=== PATIENT | male | born 1945 | race Caucasian/White ===

== ENCOUNTER 2017-02-27 15:44 | Emergency (ER) | payer OTHER, MEDICAID ==
[~2017-02-27] VITALS: Ht 182.9 cm; Wt 90.0 kg
[~2017-02-27 15:44] MED LIST: ASPI-664 PO; BENA10TA48 PO; BENZ1TAB7 PO; BUPR100T14 PO; DAL15 PO; DOCU-103 PO; DONE10TA7 PO; IBUP-1542 PO; LIDO30JE5 TOP; MULT-552 PO; OMEP20CA9 PO
[2017-02-27 15:48] VITALS: Ht 182.9 cm; Wt 90.0 kg
[2017-02-27] MEDS ORDERED: SOD CHLORIDE 0.9% 1,000 ML IV STA (16:07)
[2017-02-27] MEDS ORDERED: ATOR80TA75 PO (16:22)
[2017-02-27] MEDS ORDERED: BECL8.7A5 INH (16:23)
[2017-02-27] MEDS ORDERED: CARV3.1260 PO (16:30)
[2017-02-27] MEDS ORDERED: METF-382 PO (16:31)
[2017-02-27] MEDS ORDERED: RISP3TAB3 PO (16:32)
[2017-02-27] MEDS ORDERED: PANT40TA3 PO (16:32)
[2017-02-27] MEDS ORDERED: UBID300C PO (16:33)
--- NOTE | 2017-02-27 16:39 | RADRPT ---
PROCEDURE: XR Chest. CLINICAL INDICATION: 72-year-old male with abdominal pain. TECHNIQUE: Single frontal view of the chest was obtained COMPARISON: Chest x-ray 08/22/2015. FINDINGS: The soft tissues are normal. There are degenerative osteophytes in the thoracic spine. A mediastin otomy was performed. The heart is enlarged. The cardiomediastinal silhouette and hilar structures are normal. The pulmonary vasculature is normal. There are vascular calcifications in the aortic arc h. There is increased density in the left lower lobe which may be the result of a poorly visualized infiltrate. A lateral view would be helpful in confirmation. A left pleural effusion is suspected. IMPRESSION: 1. Left lower lobe infiltrate associated with a left pleural effusion suspicious for pneumonia. 2. Status post median sternotomy. 3. Atherosclerotic vascular disease. 4. Status post median sternotomy. RPTAT:AAJJ Physician Rancho Date Time Electronically viewed and signed by Physician Rancho on 02/27/2017 16:38 NANCY/
[2017-02-27 16:57] LABS: ADD SCAN DIFF NO
[2017-02-27 16:59] LABS: BASOPHILS % 0.2 % (0.0-2.0); EOSINOPHILS # 0.3 10^3/ul (0.0-0.5); EOSINOPHILS % 4.8 % (0.0-7.0); HEMATOCRIT 30.9 % (42.0-52.0); HEMOGLOBIN 10.4 g/dl (14.0-18.0); LYMPHOCYTES # 2.3 10^3/ul (0.8-2.9); LYMPHOCYTES % 39.9 % (15.0-51.0); MEAN CORPUSCULAR HEMOGLOBIN 30.4 pg (29.0-33.0); MEAN CORPUSCULAR HGB CONC 33.7 g/dl (32.0-37.0); MEAN CORPUSCULAR VOLUME 90.4 fl (82.0-101.0); MEAN PLATELET VOLUME 10.3 fl (7.4-10.4); MONOCYTE # 0.7 10^3/ul (0.3-0.9); MONOCYTES % 11.2 % (0.0-11.0); NEUTROPHIL # 2.5 10^3/ul (1.6-7.5); NEUTROPHILS % 43.6 % (39.0-77.0); PLATELET COUNT 134 10^3/UL (140-415); RED BLOOD COUNT 3.42 10^6/ul (4.70-6.10); RED CELL DISTRIBUTION WIDTH 13.5 % (11.5-14.5); WHITE BLOOD COUNT 5.8 10^3/ul (4.8-10.8)
--- NOTE | 2017-02-27 17:07 | ERD ---
ER Documentation Chief Complaint Date/Time DATE: 02/27/17 TIME: 17:04 Chief Complaint back pain and fever x 1 day HPI 72-year-old male who presents the emergency room for multiple issues. residential facilities reports that the patient has had fever and back pain. However the patient denies having fever or back pain. He states that he feels occasionally lightheaded when he stands up. He feels that he is dehydrated. He denies any dysuria urgency or frequency, no back pain, no chest pain or shortness of breath, no headache, no slurred speech. Patient denies any melena or hematemesis. He otherwise has no complaints. ROS All systems reviewed and are negative except as per history of present illness. Medications Home Meds Reported Medications Ubidecarenone* (Co Q-10*) 300 Mg Capsule, 300 MG PO BID, CAP 02/27/17 Risperidone* (Risperidone*) 3 Mg Tablet, 3 MG PO QHS, TAB 02/27/17 Pantoprazole* (Protonix*) 40 Mg Tablet.dr, 40 MG PO DAILY, TAB 02/27/17 Metformin Hcl* (Metformin Hcl*) 500 Mg Tablet, 500 MG PO WITH BREAKFAST DINNE, # 30 TAB 02/27/17 Carvedilol* (Carvedilol*) 3.125 Mg Tablet, 3.125 MG PO BID, #60 TAB 02/27/17 Beclomethasone Dip* (Qvar 80*) 7.3 Gm Inha, 2 PUFF INH BID, #1 INHALER 02/27/17 Atorvastatin* (Atorvastatin*) 80 Mg Tablet, 80 MG PO QHS, #30 TAB 02/27/17 Multivitamins* (Once Daily*) 1 Tab Tablet, 1 TAB PO DAILY, TAB 03/17/15 Benztropine Mesylate* (Benztropine Mesylate*) 1 Mg Tablet, 1 MG PO QHS, TAB 03/17/15 Aspirin (Low Dose Aspirin) 81 Mg Tablet.dr, 81 MG PO DAILY 03/17/15 Benazepril Hcl* (Benazepril Hcl*) 10 Mg Tablet, 10 MG PO DAILY, TAB 03/17/15 Discontinued Reported Medications Flurazepam HCl* (Dalmane*) 15 Mg Capsule, 15 MG PO HS Y for INSOMNIA, CAP 03/17/15 Lidocaine 2% Jelly* (Xylocaine 2% Jelly*) 1 Applic Jel, 1 APPLIC TOP at noon, TUB 03/17/15 Ibuprofen* (Motrin*) 600 Mg Tab, 600 MG PO BID Y for PAIN, TAB 03/17/15 Docusate Sodium (Docusil) 100 Mg Capsule, 100 MG PO BID 03/17/15 Omeprazole* (Prilosec*) 20 Mg Capsule.dr, 20 MG PO DAILY, CAP 03/17/15 Bupropion Hcl* (Bupropion Hcl*) 100 Mg Tablet, 100 MG PO DAILY, TAB 03/17/15 Donepezil* (Aricept*) 10 Mg Tablet, 10 MG PO DAILY, TAB 03/17/15 Allergies Allergies: Coded Allergies: penicillin (Verified Allergy, Unknown, rash, 02/27/17) PMhx/Soc History of Surgery: Yes (X3 BYPASS SX IN 2009) Anesthesia Reaction: No Hx Neurological Disorder: No Hx Respiratory Disorders: No Hx Cardiac Disorders: Yes (TRIPLE BYPASS IN 2009; cholesterol; htn; cad; ) Hx Psychiatric Problems: Yes (DEPRESSION, SCHIZOPHRENIA, DEMENTIA) Hx Miscellaneous Medical Probl: Yes (dm) Hx Alcohol Use: No Hx Substance Use: No Hx Tobacco Use: No Smoking Status: Unknown if ever smoked FmHx Family History: No diabetes Physical Exam Vitals Vital Signs Date Time Temp Pulse Resp B/P Pulse Ox O2 Delivery O2 Flow Rate FiO2 02/27/17 15:48 98.5 49 18 142/66 98 Physical Exam General: Well developed, well nourished, no acute distress Head: Normocephalic, atraumatic. Eyes: Pupils equally reactive, EOM intact ENT: Moist mucous membranes Neck: Supple, no lymphadenopathy Respiratory: Lungs clear bilaterally, no distress Cardiovascular: RRR, no murmurs, rubs, or gallops Abdominal: Soft, non-tender, non-distended, no peritoneal signs : Deferred MSK: No edema, no unilateral swelling, 5/5 strength Neurologic: Alert and oriented, moving all extremities, normal speech, no focal weakness, no cerebellar signs Skin: No rash Psych: Normal mood Result Diagram: 02/27/17 1610 02/27/17 1610 Results 24 hrs Laboratory Tests Test 02/27/17 16:10 02/27/17 17:05 White Blood Count 5.810^3/ul Red Blood Count 3.4210^6/ul Hemoglobin 10.4g/dl Hematocrit 30.9% Mean Corpuscular Volume 90.4fl Mean Corpuscular Hemoglobin 30.4pg Mean Corpuscular Hemoglobin Concent 33.7g/dl Red Cell Distribution Width 13.5% Platelet Count 19376^3/UL Mean Platelet Volume 10.3fl Neutrophils % 43.6% Lymphocytes % 39.9% Monocytes % 11.2% Eosinophils % 4.8% Basophils % 0.2% Nucleated Red Blood Cells % 0.0/100WBC Neutrophils # 2.510^3/ul Lymphocytes # 2.310^3/ul Monocytes # 0.710^3/ul Eosinophils # 0.310^3/ul Basophils # 0.010^3/ul Nucleated Red Blood Cells # 0.010^3/ul Prothrombin Time 13.0Sec Prothrombin Time Ratio 1.0 INR International Normalized Ratio 0.98 Activated Partial Thromboplast Time 32.1Sec Sodium Level 139mmol/L Potassium Level 3.3mmol/L Chloride Level 102mmol/L Carbon Dioxide Level 26mmol/L Anion Gap 14 Blood Urea Nitrogen 19mg/dl Creatinine 0.98mg/dl Glucose Level 109mg/dl Calcium Level 9.0mg/dl Total Bilirubin 0.2mg/dl Direct Bilirubin 0.00mg/dl Indirect Bilirubin 0.2mg/dl Aspartate Amino Transf (AST/SGOT) 35IU/L Alanine Aminotransferase (ALT/SGPT) 41IU/L Alkaline Phosphatase 54IU/L Troponin I < 0.012ng/ml Total Protein 6.1g/dl Albumin 3.3g/dl Globulin 2.80g/dl Albumin/Globulin Ratio 1.17 Lipase 95U/L Urine Color LT. YELLOW Urine Clarity CLEAR Urine pH 5.5 Urine Specific [place] 1.015 Urine Ketones NEGATIVE Urine Nitrite NEGATIVE Urine Bilirubin NEGATIVE Urine Urobilinogen 0.2 E.U./dL Urine Leukocyte Esterase NEGATIVE Urine Hemoglobin NEGATIVE Urine Glucose NEGATIVE% Urine Total Protein NEGATIVE Current Medications Medications (Trade) Dose Ordered Sig/Ashlie Route PRN Reason Start Time Stop Time Status Last Admin Dose Admin Sodium Chloride (NS) 1,000 ml @ 1,000 mls/hr Q1H STAT IV 02/27/17 16:07 02/27/17 17:06 DC Procedures/MDM EKG, MONITORS, & DIAGNOSTIC IMAGING: EKG: I reviewed and interpreted a 12-lead EKG. Rhythm: Normal sinus rhythm Ectopy: None Intervals: No abnormalities ST segments: No elevations or depressions T waves: No contiguous inversions Chest x-ray: I reviewed and interpreted a 1 view of the chest Mediastinum: No enlargement Cardiac silhouette: mild cardiomegaly Airspace: mild left effusion, no gross infiltrates Bones: No evidence of fracture Radiology read cxr IMPRESSION: 1. Left lower lobe infiltrate associated with a left pleural effusion suspicious for pneumonia. 2. Status post median sternotomy. 3. Atherosclerotic vascular disease. 4. Status post median sternotomy. RPTAT:AAJJ LAB INTERPRETATION: No leukocytosis, no left shift MEDICAL DECISION MAKING: The patient presents to the emergency room for unclear reasons. The patient states it is here because he is feeling orthostatic and possibly dehydrated. Report via [facility] facility is at the patient is having fever and back pain. He is currently taking Levaquin for presumed urinary tract infection. He denies any cough. Clinically he has no evidence of CVA tenderness, he has a benign abdominal exam and no fever. I do not believe this is consistent with pyelonephritis. Given the broad differential a broad workup will be initiated to rule out dehydration or bacteremia. Otherwise however the patient is extremely well-appearing and ambulatory without difficulty here in the emergency department. ER COURSE: The patient's radiology read on the x-ray shows evidence of possible pneumonia however the patient has no cough, no fever here, no leukocytosis and no left shift. This is possible why the patient is taking Levaquin that was started on February 26 just yesterday. Patient continues to be well-appearing. His curb 65 rule is 1 placing him in low risk. Given that he continues to be well- appearing I believe outpatient management would be most appropriate. Clinically the patient does not have evidence of pneumonia but would be reasonable to cover given patient's x-ray. Urinalysis is negative. I have attempted to reach out to the patient's primary care physician for greater than 45 minutes without success. At this time I feel the risks of inpatient hospitalization outweigh the benefits. Patient will be discharged back for completion of course of Levaquin and close primary care follow-up. I kept the patient and/or family informed of laboratory and diagnostic imaging results throughout the emergency room course. DISPOSITION PLAN: We discussed follow up with the patient's primary care doctor within 24 to 48 hours as needed. We also discussed return to the emergency room for worsening symptoms or worsening condition. Outpatient referral: [None required] Discharge Medications: Complete Levaquin course CONSULTATION: [] Departure Diagnosis: Primary Impression: Orthostasis Additional Impression: Pneumonia Pneumonia type: due to unspecified organism Laterality: left Lung location : lower lobe of lung Qualified Code: J18.1 - Pneumonia of left lower lobe due to infectious organism Condition: Stable HAKAN FARAH MD Feb 27, 2017 17:07
[2017-02-27 17:17] LABS: INR 0.98
[2017-02-27 17:18] LABS: PARTIAL THROMBOPLASTIN TIME 32.1 Sec (25.0-35.0)
[2017-02-27 17:30] LABS: ALBUMIN 3.3 g/dl (3.3-4.9)
[2017-02-27 17:31] LABS: CHLORIDE 102 mmol/L (97-110); POTASSIUM 3.3 mmol/L (3.5-5.1); SODIUM 139 mmol/L (135-144)
[2017-02-27 17:33] LABS: ALANINE AMINOTRANSFERASE 41 IU/L (13-69); ALBUMIN/GLOBULIN RATIO 1.17; ALKALINE PHOSPHATASE 54 IU/L (42-121); ANION GAP 14 (8-16); ASPARTATE AMINO TRANSFERASE 35 IU/L (15-46); BILIRUBIN,INDIRECT 0.2 mg/dl (0-1.1); BILIRUBIN,TOTAL 0.2 mg/dl (0.2-1.3); BLOOD UREA NITROGEN 19 mg/dl (7-20); CARBON DIOXIDE 26 mmol/L (21-31); CREATININE 0.98 mg/dl (0.61-1.24); GLUCOSE 109 mg/dl (70-220); TOTAL PROTEIN 6.1 g/dl (6.1-8.1)
[2017-02-27 17:43] LABS: ADD UMIC NO; URINE BILIRUBIN (Dip) NEGATIVE (NEGATIVE); URINE BLOOD (Dip) NEGATIVE (NEGATIVE); URINE COLOR LT. YELLOW (YELLOW); URINE GLUCOSE (Dip) NEGATIVE (NEGATIVE); URINE KETONES (Dip) NEGATIVE (NEGATIVE); URINE LEUKOCYTE ESTERASE (Dip) NEGATIVE (NEGATIVE); URINE NITRITE (Dip) NEGATIVE (NEGATIVE); URINE TOTAL PROTEIN (Dip) NEGATIVE (NEGATIVE); URINE UROBILINOGEN (Dip) 0.2 E.U./dL (0.1-1.0)
[2017-02-27 17:45] LABS: TROPONIN-I < 0.012 ng/ml (0.00-0.12)
[2017-02-27 18:58] VITALS: BP 161/75; PULSE 52; RESP 18; TEMP 97.5
== END 2017-02-27 20:25 | disposition home or self-care (01) ==
LOC: E/R 15:44
DX: I95.1 Orthostatic hypotension (principal); J18.1 Lobar pneumonia, unspecified organism; I10 Essential (primary) hypertension; I25.10 Atherosclerotic heart disease of native coronary artery without angina pectoris; E11.9 Type 2 diabetes mellitus without complications; M54.9 Dorsalgia, unspecified; Z79.82 Long term (current) use of aspirin; Z79.84 Long term (current) use of oral hypoglycemic drugs
CPT/HCPCS: 36415; 71010; 80053; 81003; 83690; 84484; 85025; 85610; 85730; 87086; 93005; 99285; J7030

== ENCOUNTER 2017-05-24 13:26 | Emergency (ER) | payer OTHER, MEDICAID ==
[~2017-05-24] VITALS: Ht 182.9 cm; Wt 86.0 kg
[~2017-05-24 13:26] MED LIST changes: +ATOR80TA75 PO; +BECL8.7A5 INH; -BUPR100T14 PO; +CARV3.1260 PO; -DAL15 PO; -DOCU-103 PO; -DONE10TA7 PO; -IBUP-1542 PO; -LIDO30JE5 TOP; +METF500T4 PO; -OMEP20CA9 PO; +PANT40TA3 PO; +RISP3TAB3 PO; +UBID300C PO
[2017-05-24 13:34] VITALS: Ht 182.9 cm; Wt 86.0 kg
[2017-05-24] MEDS ORDERED: ONDANSETRON (ODT) 4 MG TAB ODT STA (14:39)
[2017-05-24] MEDS ORDERED: ACETAMINOPHEN 325 MG TAB PO ONE (15:00)
--- NOTE | 2017-05-24 15:23 | RADRPT ---
PROCEDURE: Chest x-ray CLINICAL INDICATION: Cough TECHNIQUE: Chest single view COMPARISON: 02/27/2017 FINDINGS: There post thoracotomy changes. Stable cardiomegaly and an sclerotic aortic calcification is seen. The pulmonary vessels are normal in caliber. The lungs are clear. The costophrenic angles are sha rp. The visualized bony thorax is unremarkable. IMPRESSION: No acute cardiopulmonary disease. Stable cardiomegaly and atherosclerotic aortic calcification Status post CABG RPTAT: HH .Jason Agee MD, Date Time Electronically viewed and signed by .Jason Agee MD, on 05/24/2017 15:23 .W/
[2017-05-24 15:48] LABS: ADD SCAN DIFF NO
[2017-05-24 15:51] LABS: BASOPHILS % 0.3 % (0.0-2.0); EOSINOPHILS # 0.3 10^3/ul (0.0-0.5); EOSINOPHILS % 3.1 % (0.0-7.0); HEMATOCRIT 36.2 % (42.0-52.0); HEMOGLOBIN 12.4 g/dl (14.0-18.0); LYMPHOCYTES # 3.1 10^3/ul (0.8-2.9); LYMPHOCYTES % 32.2 % (15.0-51.0); MEAN CORPUSCULAR HEMOGLOBIN 30.8 pg (29.0-33.0); MEAN CORPUSCULAR HGB CONC 34.3 g/dl (32.0-37.0); MEAN CORPUSCULAR VOLUME 89.8 fl (82.0-101.0); MEAN PLATELET VOLUME 9.7 fl (7.4-10.4); MONOCYTE # 1.1 10^3/ul (0.3-0.9); NEUTROPHIL # 5.2 10^3/ul (1.6-7.5); NEUTROPHILS % 53.2 % (39.0-77.0); PLATELET COUNT 179 10^3/UL (140-415); RED BLOOD COUNT 4.03 10^6/ul (4.70-6.10); RED CELL DISTRIBUTION WIDTH 13.6 % (11.5-14.5); WHITE BLOOD COUNT 9.8 10^3/ul (4.8-10.8)
[2017-05-24 16:12] LABS: INR 0.94; PROTIME 12.6 Sec (12.2-14.2)
[2017-05-24 16:13] LABS: PARTIAL THROMBOPLASTIN TIME 28.7 Sec (25.0-35.0)
[2017-05-24 16:15] LABS: ALANINE AMINOTRANSFERASE 56 IU/L (13-69); ALBUMIN 5.1 g/dl (3.3-4.9); ALBUMIN/GLOBULIN RATIO 1.88; ALKALINE PHOSPHATASE 53 IU/L (42-121); ANION GAP 15 (8-16); ASPARTATE AMINO TRANSFERASE 34 IU/L (15-46); BILIRUBIN,INDIRECT 0.4 mg/dl (0-1.1); BILIRUBIN,TOTAL 0.4 mg/dl (0.2-1.3); BLOOD UREA NITROGEN 27 mg/dl (7-20); CALCIUM 10.1 mg/dl (8.4-10.2); CARBON DIOXIDE 24 mmol/L (21-31); CHLORIDE 101 mmol/L (97-110); CREATININE 1.56 mg/dl (0.61-1.24); GLUCOSE 99 mg/dl (70-220); POTASSIUM 4.1 mmol/L (3.5-5.1); SODIUM 136 mmol/L (135-144); TOTAL PROTEIN 7.8 g/dl (6.1-8.1)
[2017-05-24 16:35] LABS: TROPONIN-I < 0.012 ng/ml (0.00-0.12)
[2017-05-24] MEDS ORDERED: AZIT250T94 PO (17:24)
[2017-05-24] MEDS ORDERED: BENZ100C70 PO (17:24)
[2017-05-24] MEDS ORDERED: ACET500C5 PO (17:24)
[2017-05-24] MEDS ORDERED: KETOROLAC 15 MG INJ IV STA (17:29)
[2017-05-24 17:46] VITALS: BP 131/66; PULSE 58; RESP 20; TEMP 98.2
[2017-05-24] MEDS ORDERED: morphine 2 MG INJ IV ONE (18:00)
--- NOTE | 2017-05-25 00:13 | ERD ---
ER Documentation Chief Complaint Date/Time DATE: 05/25/17 TIME: 00:09 Chief Complaint sore throat with n/v x 3 days HPI 72-year-old male patient with a past nuchal history of diabetes, hypertension, neuropathy, arthritis presents to the ED complaining of sore throat, nausea, one episode of nonbilious nonbloody vomiting, dry cough that started 3 days ago. Reports that he feels like his equilibrium is imbalanced. Denies any head or neck traumas. Denies any loss of consciousness. Denies any seizures, weakness, numbness or tingling, abdominal pain, chest pain, shortness of breath , wheezing, dyspnea on exertion, orthopnea, leg swelling. ROS All systems reviewed and are negative except as per history of present illness. Medications Home Meds Active Scripts Azithromycin* (Zithromax*) 250 Mg Tablet, 250 MG PO .ZPACK DIRECTED, #6 TAB TAKE 500 MG (2 TABS) THE FIRST DAY THEN 250 MG (1 TAB) DAYS 2-5 Prov:POLLY BARON PA-C 05/24/17 Acetaminophen* (Tylophen*) 500 Mg Capsule, 1 CAP PO Q6H Y for PAIN AND OR ELEVATED TEMP, #20 CAP Prov:POLLY BARON PA-C 05/24/17 Benzonatate* (Tessalon Perle*) 100 Mg Capsule, 100 MG PO Q8H Y for COUGH, #20 CAP Prov:POLLY BARON-Jose 05/24/17 Reported Medications Ubidecarenone* (Co Q-10*) 300 Mg Capsule, 300 MG PO BID, CAP 02/27/17 Risperidone* (Risperidone*) 3 Mg Tablet, 3 MG PO QHS, TAB 02/27/17 Pantoprazole* (Protonix*) 40 Mg Tablet.dr, 40 MG PO DAILY, TAB 02/27/17 Metformin Hcl* (Metformin Hcl*) 500 Mg Tablet, 500 MG PO WITH BREAKFAST DINNE, # 30 TAB 02/27/17 Carvedilol* (Carvedilol*) 3.125 Mg Tablet, 3.125 MG PO BID, #60 TAB 02/27/17 Beclomethasone Dip* (Qvar 80*) 7.3 Gm Inha, 2 PUFF INH BID, #1 INHALER 02/27/17 Atorvastatin* (Atorvastatin*) 80 Mg Tablet, 80 MG PO QHS, #30 TAB 02/27/17 Multivitamins* (Once Daily*) 1 Tab Tablet, 1 TAB PO DAILY, TAB 03/17/15 Benztropine Mesylate* (Benztropine Mesylate*) 1 Mg Tablet, 1 MG PO QHS, TAB 03/17/15 Aspirin (Low Dose Aspirin) 81 Mg Tablet.dr, 81 MG PO DAILY 03/17/15 Benazepril Hcl* (Benazepril Hcl*) 10 Mg Tablet, 10 MG PO DAILY, TAB 03/17/15 Allergies Allergies: Coded Allergies: penicillin (Verified Allergy, Unknown, rash, 02/27/17) PMhx/Soc History of Surgery: Yes (X3 BYPASS SX IN 2009) Anesthesia Reaction: No Hx Neurological Disorder: No Hx Respiratory Disorders: No Hx Cardiac Disorders: Yes (TRIPLE BYPASS IN 2009; cholesterol; htn; cad; ) Hx Psychiatric Problems: Yes (DEPRESSION, SCHIZOPHRENIA, DEMENTIA) Hx Miscellaneous Medical Probl: Yes (dm) Hx Alcohol Use: No Hx Substance Use: No Hx Tobacco Use: No Smoking Status: Never smoker Physical Exam Vitals Vital Signs Date Time Temp Pulse Resp B/P Pulse Ox O2 Delivery O2 Flow Rate FiO2 05/24/17 17:46 98.2 58 20 131/66 98 Room Air Nasal Cannula 05/24/17 16:44 98.2 55 20 131/62 98 Nasal Cannula 2.0 05/24/17 15:35 Nasal Cannula 2 05/24/17 13:34 98.7 75 20 116/58 95 Physical Exam Const: [id number], well-nourished. In no acute distress. Head: Atraumatic, normocephalic Eyes: Normal Conjunctiva without injection. No purulent discharge. PERRLA. EOMI ENT: Normal external ear. Ear canal without erythema. Tympanic membrane pearly nelson without effusion or bulging. Nasal canal clear with normal turbinates. Moist oropharynx without tonsillar exudates. Non-erythematous pharynx. Uvula midline. No drooling. No trismus. Neck: No cervical midline tenderness. Full range of motion. No meningismus. No cervical lymphadenopathy. No JVD. Resp: Clear to auscultation bilaterally. No wheezing, rhonchi, rales, or crackles. No accessory muscle use. No retractions. Cardio: Regular rate and rhythm. No murmurs, rubs or gallops. Abd: Soft, non tender, non distended. Normal bowel sounds. No palpable masses. No rebound tenderness. No guarding. Negative McBurney's Point. Negative Haskins's Sign. Skin: Normal skin turgor. No petechiae or rashes Back: No midline tenderness. No CVA tenderness. Ext: No cyanosis, or edema. Distal pulses intact bilaterally. Neur: Awake and alert. Normal gait. Normal coordination. Cranial Nerves II- VII intact. Normal finger to nose. Muscle strength 5/5. Sensation intact. Psych: Normal Mood and Affect Result Diagram: 05/24/17 1540 05/24/17 1540 Results 24 hrs Laboratory Tests Test 05/24/17 15:20 05/24/17 15:40 Monoscreen Negative White Blood Count 9.810^3/ul Red Blood Count 4.0310^6/ul Hemoglobin 12.4g/dl Hematocrit 36.2% Mean Corpuscular Volume 89.8fl Mean Corpuscular Hemoglobin 30.8pg Mean Corpuscular Hemoglobin Concent 34.3g/dl Red Cell Distribution Width 13.6% Platelet Count 74078^3/UL Mean Platelet Volume 9.7fl Neutrophils % 53.2% Lymphocytes % 32.2% Monocytes % 11.0% Eosinophils % 3.1% Basophils % 0.3% Nucleated Red Blood Cells % 0.0/100WBC Neutrophils # 5.210^3/ul Lymphocytes # 3.110^3/ul Monocytes # 1.110^3/ul Eosinophils # 0.310^3/ul Basophils # 0.010^3/ul Nucleated Red Blood Cells # 0.010^3/ul Prothrombin Time 12.6Sec Prothrombin Time Ratio 1.0 INR International Normalized Ratio 0.94 Activated Partial Thromboplast Time 28.7Sec Sodium Level 136mmol/L Potassium Level 4.1mmol/L Chloride Level 101mmol/L Carbon Dioxide Level 24mmol/L Anion Gap 15 Blood Urea Nitrogen 27mg/dl Creatinine 1.56mg/dl Glucose Level 99mg/dl Calcium Level 10.1mg/dl Total Bilirubin 0.4mg/dl Direct Bilirubin 0.00mg/dl Indirect Bilirubin 0.4mg/dl Aspartate Amino Transf (AST/SGOT) 34IU/L Alanine Aminotransferase (ALT/SGPT) 56IU/L Alkaline Phosphatase 53IU/L Troponin I < 0.012ng/ml Total Protein 7.8g/dl Albumin 5.1g/dl Globulin 2.70g/dl Albumin/Globulin Ratio 1.88 Lipase 137U/L Current Medications Medications (Trade) Dose Ordered Sig/Ashlie Route PRN Reason Start Time Stop Time Status Last Admin Dose Admin Ondansetron HCl (Zofran Odt) 4 mg ONCE STAT ODT 05/24/17 14:39 05/24/17 14:40 DC 05/24/17 14:46 Acetaminophen (Tylenol Tab) 650 mg ONCE ONCE PO 05/24/17 15:00 05/24/17 15:01 DC 05/24/17 14:46 Ketorolac Tromethamine (Toradol) 15 mg ONCE STAT IV 05/24/17 17:29 05/24/17 17:30 Cancel Morphine Sulfate (morphine) 2 mg ONCE ONCE IV 05/24/17 18:00 05/24/17 18:01 DC 05/24/17 17:47 Procedures/MDM This is a 72-year-old male patient with a past medical history of diabetes, hypertension, neuropathy, arthritis presents to the ED complaining of sore throat, nausea, vomiting, dry cough that started 3 days ago. Patient is afebrile and nontoxic-appearing. Patient has normal vital signs. Patient was seen here in February 27, 2017 and was diagnosed with pneumonia. Patient was initially given Zofran, Tylenol and tolerated p.o. challenge. Patient stated that he did not feel better, therefore this case was discussed with my supervising physician, Dr. Luong. Patient was further worked up with CBC, CMP , lipase, UA, chest x-ray. Patient's pain improved after receiving morphine 2 mg. CBC: No leukocytosis. No e/o of systemic infection. No e/o anemia. CMP: No e/o severe acidosis, alkalosis, renal failure, diabetic ketoacidosis, liver disease Lipase within normal limits. Urine: No leukocyte esterase, no nitrites, no hematuria. PROCEDURE: Chest x-ray CLINICAL INDICATION: Cough TECHNIQUE: Chest single view COMPARISON: 02/27/2017 FINDINGS: There post thoracotomy changes. Stable cardiomegaly and an sclerotic aortic calcification is seen. The pulmonary vessels are normal in caliber. The lungs are clear. The costophrenic angles are sharp. The visualized bony thorax is unremarkable. IMPRESSION: No acute cardiopulmonary disease. Stable cardiomegaly and atherosclerotic aortic calcification Status post CABG EKG reviewed and interpreted by Dr. Luong Rate/Rhythm: [54 bpm, Normal Sinus Rhythm] No ectopy, no ST elevations, normal axis. QRS, ST, T-waves: [No changes consistent w/ acute ischemia] Impression: [No evidence of ischemia or arrhythmia] Patient symptoms could likely be due to viral etiology. However if patient symptoms do not improve with symptomatic treatment, he was given a prescription for Zithromax to take in 1 week. Low suspicion for acute myocardial infarction , pneumothorax, pneumonia, cardiac tamponade, pulmonary embolism, AAA, aortic dissection, Boerhaave's syndrome, cardiac dysrhythmias,meningitis, intracranial bleed, seizure, stroke, TIA or other emergent conditions.Low suspicion for gastritis, GERD, peptic ulcer disease, cholecystitis, choledocholithiasis, cholangitis, pancreatitis, appendicitis, bowel obstruction, ileus, volvulus, nephrolithiasis, pyelonephritis, hepatitis, perforated viscus, diverticulitis, abdominal hernia, acute abdomen, mesenteric ischemia or other emergent conditions. This case was discussed with my supervising physician, Dr. Luong who agreed with the management and discharge plan. Discharge medications: Tylenol, Tessalon Perles, Zithromax Follow up with primary care physician in 1-2 days for referral to clinical counselor. Instructed patient to return to the ED sooner for any worsening symptoms. Patient's questions were answered. Patient understood and agreed with discharge plan. Patient discharged stable. Departure Diagnosis: Primary Impression: Cough Additional Impression: Body aches Condition: Stable Patient Instructions: Bronchitis, Antiobiotic Treatment (Adult), Uri, Viral, No Abx (Adult) Referrals: COMMUNITY CLINICS YOU HAVE RECEIVED A MEDICAL SCREENING EXAM AND THE RESULTS INDICATE THAT YOU DO NOT HAVE A CONDITION THAT REQUIRES URGENT TREATMENT IN THE EMERGENCY DEPARTMENT. FURTHER EVALUATION AND TREATMENT OF YOUR CONDITION CAN WAIT UNTIL YOU ARE SEEN IN YOUR DOCTORS OFFICE WITHIN THE NEXT 1-2 DAYS. IT IS YOUR RESPONSIBILITY TO MAKE AN APPOINTMENT FOR FOLOW-UP CARE. IF YOU HAVE A PRIMARY DOCTOR --you should call your primary doctor and schedule an appointment IF YOU DO NOT HAVE A PRIMARY DOCTOR YOU CAN CALL OUR PHYSICIAN REFERRAL HOTLINE AT IF YOU CAN NOT AFFORD TO SEE A PHYSICIAN YOU CAN CHOSE FROM THE FOLLOWING [facility] [address] [facility] [address] [facility] [address] [facility] [address] [facility] [address] [facility]. [facility] [address] [facility]. [facility] YOU HAVE RECEIVED A MEDICAL SCREENING EXAM AND THE RESULTS INDICATE THAT YOU DO NOT HAVE A CONDITION THAT REQUIRES URGENT TREATMENT IN THE EMERGENCY DEPARTMENT. FURTHER EVALUATION AND TREATMENT OF YOUR CONDITION CAN WAIT UNTIL YOU ARE SEEN IN YOUR DOCTORS OFFICE WITHIN THE NEXT 1-2 DAYS. IT IS YOUR RESPONSIBILITY TO MAKE AN APPOINTMENT FOR FOLOW-UP CARE. IF YOU HAVE A PRIMARY DOCTOR --you should call your primary doctor and schedule and appointment IF YOU DO NOT HAVE A PRIMARY DOCTOR YOU CAN CALL OUR PHYSICIAN REFERRAL HOTLINE AT . IF YOU CAN NOT AFFORD TO SEE A PHYSICIAN YOU CAN CHOSE FROM THE FOLLOWING [facility]: [facility] [address] [place] [address] [facility] [address] [place] [address] [facility] [address] [place] [address] [facility] Additional Instructions: Call your primary care doctor TOMORROW for an appointment during the next 1-2 days.See the doctor sooner or return here if your condition worsens before your appointment time. POLLY BARON PA-C May 25, 2017 00:13
== END 2017-05-24 18:02 | disposition home or self-care (01) ==
LOC: FTE 13:26
DX: R05 Cough (principal); E11.9 Type 2 diabetes mellitus without complications; R07.9 Chest pain, unspecified; R11.2 Nausea with vomiting, unspecified; Z79.82 Long term (current) use of aspirin; Z79.84 Long term (current) use of oral hypoglycemic drugs
CPT/HCPCS: 36415; 71010; 80053; 83690; 84484; 85025; 85610; 85730; 86308; 87400; 93005; 96374; 99285; J2270

== ENCOUNTER 2017-09-06 18:39 | Emergency (ER) | payer OTHER, MEDICAID ==
[~2017-09-06] VITALS: Ht 182.9 cm; Wt 81.8 kg
[~2017-09-06 18:39] MED LIST changes: +ACET500C5 PO; +AZIT250T94 PO; +BENZ100C70 PO
[2017-09-06 18:46] VITALS: Ht 182.9 cm; Wt 81.8 kg
[2017-09-06] MEDS ORDERED: morphine 4 MG/ML VIAL IV STA (18:46)
[2017-09-06] MEDS ORDERED: ONDANSETRON 4 MG INJ IV STA (18:46)
[2017-09-06 19:17] LABS: BASOPHILS % 0.3 % (0.0-2.0); EOSINOPHILS # 0.1 10^3/ul (0.0-0.5); EOSINOPHILS % 0.7 % (0.0-7.0); HEMATOCRIT 34.4 % (42.0-52.0); HEMOGLOBIN 11.4 g/dl (14.0-18.0); LYMPHOCYTES # 2.7 10^3/ul (0.8-2.9); LYMPHOCYTES % 27.4 % (15.0-51.0); MEAN CORPUSCULAR HEMOGLOBIN 30.2 pg (29.0-33.0); MEAN CORPUSCULAR HGB CONC 33.1 g/dl (32.0-37.0); MEAN CORPUSCULAR VOLUME 91.2 fl (82.0-101.0); MEAN PLATELET VOLUME 10.2 fl (7.4-10.4); MONOCYTE # 0.8 10^3/ul (0.3-0.9); MONOCYTES % 8.4 % (0.0-11.0); NEUTROPHIL # 6.3 10^3/ul (1.6-7.5); NEUTROPHILS % 62.9 % (39.0-77.0); PLATELET COUNT 253 10^3/UL (140-415); RED BLOOD COUNT 3.77 10^6/ul (4.70-6.10); RED CELL DISTRIBUTION WIDTH 13.1 % (11.5-14.5)
[2017-09-06 19:28] LABS: CALCIUM 9.4 mg/dl (8.4-10.2); CREATININE 0.95 mg/dl (0.61-1.24); POTASSIUM 3.3 mmol/L (3.5-5.1)
--- NOTE | 2017-09-06 20:18 | ERD ---
ER Documentation Chief Complaint Date/Time DATE: 09/06/17 TIME: 20:16 Chief Complaint GENERALIZED PAIN FROM THE HEAD TO THE TOES X 5 DAYS HPI This is a 72-year-old gentleman history of diabetes, coronary disease who presents to the emergency room with body pain. He states at least 5-7 days of pain from the tips of his toes to the top of his head. He states the pain is moderate and throbbing and constant. He does describe a mild dry nonproductive cough for several days. No fevers or chills, no pleuritic pain, no chest pain no exertional symptoms. He states his pain is somewhat different from his neuropathy pain. ROS All systems reviewed and are negative except as per history of present illness. Medications Home Meds Active Scripts Azithromycin* (Zithromax*) 250 Mg Tablet, 250 MG PO .ZPACK DIRECTED, #6 TAB TAKE 500 MG (2 TABS) THE FIRST DAY THEN 250 MG (1 TAB) DAYS 2-5 Prov:POLLY BARON PA-C 05/24/17 Acetaminophen* (Tylophen*) 500 Mg Capsule, 1 CAP PO Q6H Y for PAIN AND OR ELEVATED TEMP, #20 CAP Prov:POLLY BARON PA-C 05/24/17 Benzonatate* (Tessalon Perle*) 100 Mg Capsule, 100 MG PO Q8H Y for COUGH, #20 CAP Prov:POLLY BARON PA-C 05/24/17 Reported Medications Ubidecarenone* (Co Q-10*) 300 Mg Capsule, 300 MG PO BID, CAP 02/27/17 Risperidone* (Risperidone*) 3 Mg Tablet, 3 MG PO QHS, TAB 02/27/17 Pantoprazole* (Protonix*) 40 Mg Tablet.dr, 40 MG PO DAILY, TAB 02/27/17 Metformin Hcl* (Metformin Hcl*) 500 Mg Tablet, 500 MG PO WITH BREAKFAST DINNE, # 30 TAB 02/27/17 Carvedilol* (Carvedilol*) 3.125 Mg Tablet, 3.125 MG PO BID, #60 TAB 02/27/17 Beclomethasone Dip* (Qvar 80*) 7.3 Gm Inha, 2 PUFF INH BID, #1 INHALER 02/27/17 Atorvastatin* (Atorvastatin*) 80 Mg Tablet, 80 MG PO QHS, #30 TAB 02/27/17 Multivitamins* (Once Daily*) 1 Tab Tablet, 1 TAB PO DAILY, TAB 03/17/15 Benztropine Mesylate* (Benztropine Mesylate*) 1 Mg Tablet, 1 MG PO QHS, TAB 03/17/15 Aspirin (Low Dose Aspirin) 81 Mg Tablet.dr, 81 MG PO DAILY 03/17/15 Benazepril Hcl* (Benazepril Hcl*) 10 Mg Tablet, 10 MG PO DAILY, TAB 03/17/15 Allergies Allergies: Coded Allergies: penicillin (Verified Allergy, Unknown, rash, 02/27/17) PMhx/Soc History of Surgery: Yes (X3 BYPASS SX IN 2009) Anesthesia Reaction: No Hx Neurological Disorder: No Hx Respiratory Disorders: No Hx Cardiac Disorders: Yes (TRIPLE BYPASS IN 2009; cholesterol; htn; cad; ) Hx Psychiatric Problems: Yes (DEPRESSION, SCHIZOPHRENIA, DEMENTIA) Hx Miscellaneous Medical Probl: Yes (dm) Hx Alcohol Use: No Hx Substance Use: No Hx Tobacco Use: No Smoking Status: Unknown if ever smoked FmHx Family History: diabetes Physical Exam Vitals Vital Signs Date Time Temp Pulse Resp B/P Pulse Ox O2 Delivery O2 Flow Rate FiO2 09/06/17 18:46 97.9 68 17 140/72 98 Physical Exam General: Well developed, well nourished, no acute distress Head: Normocephalic, atraumatic. Eyes: Pupils equally reactive, EOM intact ENT: Moist mucous membranes Neck: Supple, no lymphadenopathy Respiratory: Lungs clear bilaterally, no distress Cardiovascular: RRR, no murmurs, rubs, or gallops Abdominal: Soft, non-tender, non-distended, no peritoneal signs : Deferred MSK: No edema, no unilateral swelling, 5/5 strength Neurologic: Alert and oriented, moving all extremities, normal speech, no focal weakness, no cerebellar signs Skin: No rash Psych: Normal mood Result Diagram: 09/06/17190009/06/171900 Results 24 hrs Laboratory Tests Test 09/06/17 19:01 White Blood Count 10.010^3/ul Red Blood Count 3.7710^6/ul Hemoglobin 11.4g/dl Hematocrit 34.4% Mean Corpuscular Volume 91.2fl Mean Corpuscular Hemoglobin 30.2pg Mean Corpuscular Hemoglobin Concent 33.1g/dl Red Cell Distribution Width 13.1% Platelet Count 47596^3/UL Mean Platelet Volume 10.2fl Neutrophils % 62.9% Lymphocytes % 27.4% Monocytes % 8.4% Eosinophils % 0.7% Basophils % 0.3% Nucleated Red Blood Cells % 0.0/100WBC Neutrophils # 6.310^3/ul Lymphocytes # 2.710^3/ul Monocytes # 0.810^3/ul Eosinophils # 0.110^3/ul Basophils # 0.010^3/ul Nucleated Red Blood Cells # 0.010^3/ul Sodium Level 142mmol/L Potassium Level 3.3mmol/L Chloride Level 107mmol/L Carbon Dioxide Level 24mmol/L Anion Gap 14 Blood Urea Nitrogen 25mg/dl Creatinine 0.95mg/dl Glucose Level 93mg/dl Calcium Level 9.4mg/dl Current Medications Medications (Trade) Dose Ordered Sig/Ashlie Route PRN Reason Start Time Stop Time Status Last Admin Dose Admin Morphine Sulfate (morphine) 4 mg ONCE STAT IV 09/06/17 18:46 09/06/17 18:48 DC 09/06/17 19:14 Ondansetron HCl (Zofran Inj) 4 mg ONCE STAT IV 09/06/17 18:46 09/06/17 18:48 DC 09/06/17 19:14 Procedures/MDM EKG, MONITORS, & DIAGNOSTIC IMAGING: Chest x-ray: I reviewed and interpreted a 1 view of the chest Mediastinum: No enlargement Cardiac silhouette: No cardiomegaly Airspace: Clear lung coon bilaterally without evidence of pneumothorax, sternotomy wires in place Bones: No evidence of fracture LAB INTERPRETATION: No leukocytosis, normal electrolytes MEDICAL DECISION MAKING: The patient presents with whole body pain. He does not localize any of this pain. He is afebrile and otherwise well-appearing with clear lung sounds. He is describing a cough, consider viral process versus pneumonia. Chest x-ray and laboratory testing appropriate. The patient's pain is not consistent with rhabdomyolysis or meningitis or systemic illness. He is otherwise well- appearing in the emergency department and does have chronic neuropathy. It is possible this is an exacerbation of that process. The patient will be given pain medication and reevaluated. ER COURSE: The patient continues to be well-appearing in the emergency department. I will reach out to the patient's managing primary care physician. At this point I feel he can be safely discharged back to assisted living facility. No indication for antibiotics. Given the patient's age I would like to avoid narcotic pain medication prescriptions for this patient as the risks of adverse reaction outweigh the benefits. I kept the patient and/or family informed of laboratory and diagnostic imaging results throughout the emergency room course. DISPOSITION PLAN: We discussed follow up with the patient's primary care doctor within 24 to 48 hours as needed. We also discussed return to the emergency room for worsening symptoms or worsening condition. Outpatient referral: [None required] Departure Diagnosis: Primary Impression: Myalgia Additional Impression: Cough Condition: Stable Patient Instructions: Myalgias Additional Instructions: Call your primary care doctor TOMORROW for an appointment during the next 1 WEEK.Tell the school secretary that you were referred from this facility.See the doctor sooner or return here if your condition worsens before your appointment time. HAKAN FARAH MD Sep 06, 2017 20:18
--- NOTE | 2017-09-06 20:37 | RADRPT ---
PROCEDURE: XR Chest. CLINICAL INDICATION: Chest pain. TECHNIQUE: Single frontal view. COMPARISON: 05/24/2017. FINDINGS: The lungs are clear. The heart is mildly enlarged. There is calcification in the aorta consistent with atherosclerosis. T here are sternal wires. There is no pleural effusion. There is no pneumothorax. IMPRESSION: 1. Cardiomegaly. 2. Status post CABG. 3. Clear lungs. RPTAT: QQ .Sixto Green MD, MD Date Time Electronically viewed and signed by .Sixto Green MD, MD on 09/06/2017 20:37 .R/
[2017-09-06 20:44] VITALS: BP 137/68; PULSE 71; RESP 16
== END 2017-09-06 21:25 | disposition home or self-care (01) ==
LOC: E/R 18:39
DX: M79.1 Myalgia (principal); R05 Cough; E11.9 Type 2 diabetes mellitus without complications; I25.10 Atherosclerotic heart disease of native coronary artery without angina pectoris; Z79.82 Long term (current) use of aspirin; Z79.84 Long term (current) use of oral hypoglycemic drugs
CPT/HCPCS: 36415; 71010; 80048; 85025; 96374; 96375; 99284; J2270; J2405

== ENCOUNTER 2017-12-30 16:41 | Inpatient (IN) | END 2018-01-02 11:32 | DRG 206 ==

== ENCOUNTER 2018-01-05 13:24 | Emergency (ER) | END 2018-01-07 20:52 ==